=== PATIENT | male | born 1995 | race African-American/Black ===

== ENCOUNTER 2016-06-20 02:47 | Emergency (ER) | payer OTHER ==
[~2016-06-20] VITALS: Ht 181.6 cm; Wt 74.4 kg
[2016-06-20 03:02] VITALS: TEMP 36.9; Ht 181.6 cm; Wt 74.4 kg
--- NOTE | 2016-06-20 03:13 | EMERGENCY ROOM VISIT NOTE ---
History Report prepared by Nan: Mavis Santos Under the Supervision of: Dr. Irvin Colon M.D. First contact with patient: 03:07 Chief Complaint: HEAD INJURY (MINOR) Stated Complaint: BLEEDING HEAD History of Present Illness The patient is a 20 year old male who presents to the Emergency Room with complaints of a sudden head injury that occurred prior to arrival. He currently rates his discomfort as a 2/10 in severity. The patient notes that this evening he fell injuring his head on the cement. He denies any neck pain or extremity pain. The patient denies getting into a fight. He denies being on any daily medications. Source of History: patient Onset: prior to arrival Position: head Symptom Intensity: 2/10 Timing: other (sudden) Associated Symptoms: No neck pain Review of Systems See HPI for pertinent positives & negatives. A total of 10 systems reviewed and were otherwise negative. Past Medical & Surgical Medical Problems: (1) No pertinent past medical history Surgical Problems: (1) No pertinent past surgical history Family History No pertinent family history Social History Smoking Status: Never Smoker Smokeless Tobacco Use: No Alcohol Use: occasionally Marital Status: single Housing Status: lives with roommate Occupation Status: [employer] student Current/Historical Medications Scheduled Ascorbic Acid (Ascorbic Acid), 250 MG PO DAILY Multivitamin (Multivitamin), 1 TAB PO DAILY Allergies Coded Allergies: No Known Allergies (Unverified , 06/20/16) Physical Exam Vital Signs Date Time Temp Pulse Resp B/P Pulse Ox O2 Delivery O2 Flow Rate FiO2 06/20/16 05:10 66 16 117/74 98 Room Air 06/20/16 03:02 36.9 76 18 119/76 100 Room Air Physical Exam GENERAL: Patient is mildly intoxicated appearing and in no acute distress. HEENT: 4 cm gash/macerated laceration deep to bone on left forehead with moderate amount of missing tissue. Mild venous oozing. mucous membranes moist, no nasal congestion, no scleral icterus. NECK: No stridor, no adenopathy, no meningismus, trachea is midline. LUNGS: No dyspnea. Clear to auscultation and equal bilaterally. No wheeze, no rhonchi. HEART: Regular rate and rhythm. No murmurs, rubs, gallops appreciated. ABDOMEN: Soft, nontender, bowel sounds positive, no masses appreciated, no peritonitis. BACK: No midline tenderness, no CVA tenderness EXTREMITIES: Normal motion all extremities, no cyanosis, no edema. NEUROLOGIC: Alert and oriented, no acute motor or sensory deficits, no focal weakness, cranial nerves grossly intact. SKIN: No rash, no jaundice, no diaphoresis. Medical Decision & Procedures ER Provider Diagnostic Interpretation: X ray results and stated below per my interpretation and radiologist interpretation. Other radiology results and stated below per my review and radiologist interpretation: CT Head: Mild left frontal scalp soft tissue swelling. No ICH, mass effect or edema. No skull fracture. Radiologist Matty Duran MD Study ready at 0330 and initial results transmitted at 0412 Medications Administered Medications (Trade) Dose Ordered Sig/Aaron Route Start Time Stop Time Status Last Admin Dose Admin Tetracaine/ Epinephrine/ Lidocaine (L.e.t. Gel 4%/ 1:100/0.5%) 1 ea NOW STAT EXT 06/20/16 04:06 06/20/16 04:07 DC 06/20/16 04:06 1 EA ED Course 0310: The patient was evaluated in room A3. A complete history and physical exam was performed. 0315: Ordered Lidocaine/Epinephrine 20 ml INFIL. 0406: Ordered Let Gel 4%/ 1:100/0.5% 1 ea EXT. 0450: The laceration repair was performed by GAIL Gallego. See her note for further detail. 0502: I reevaluated the patient and he is doing well. I discussed the exam findings with him and I discussed the treatment plan. He verbalized complete understanding and agreement. He is ready to go home. Medical Decision Differential: Simple Laceration, Complex Laceration, Imbedded Foreign Body, Contamination/Infection Risk, Neurovascular Compromise, Tendon Injury, Compartment Syndrome, as well as Tetanus Status, amongst other pathologies entertained. 20 yr old male arrives with laceration to left forehead. Due to etoh on board felt that ct head reasonable which fortunately was negative. No neck pain nor neuro deficits. No other injuries. Sutured with excellent closure by GAIL Kimble. I discussed that this will likely scar given the macerated wound and surrounding abrasion and discussed ways to decrease scarring. Stable and in no distress at time of discharge. Impression Primary Impression: Laceration of face Additional Impressions: Fall Head injury, closed Scribe Attestation The scribe's documentation has been prepared under my direction and personally reviewed by me in its entirety. I confirm that the note above accurately reflects all work, treatment, procedures, and medical decision making performed by me. Departure Information Dispostion Home / Self-Care Referrals [facility] Forms HOME CARE DOCUMENTATION FORM, IMPORTANT VISIT INFORMATION Patient Instructions ED Laceration Facial Sutr Tape, My [facility] Additional Instructions Follow up with [facility], or Emergency Department, in 5-7 days for suture removal. Return if signs of infection develop. Problem Qualifiers Primary Impression: Laceration of face Encounter type: initial encounter Qualified Codes: S01.81XA - Laceration without foreign body of other part of head, initial encounter Additional Impressions: Fall Encounter type: initial encounter Qualified Codes: W19.XXXA - Unspecified fall, initial encounter Head injury, closed Encounter type: initial encounter Qualified Codes: S09.90XA - Unspecified injury of head, initial encounter
[2016-06-20] MEDS ORDERED: LIDOCAINE/EPINEPHRINE 1% 20 ML VIAL INFIL ONE (03:15)
[2016-06-20] MEDS ORDERED: MULT-506 PO (03:31)
[2016-06-20] MEDS ORDERED: ASCO250T5 PO (03:31)
[2016-06-20] MEDS ORDERED: LIDOCAINE/EPINEPH/TETRACAINE 1 EA SYR EXT STA (04:06)
--- NOTE | 2016-06-20 05:00 | EMERGENCY ROOM VISIT NOTE ---
ED Visit Note Location: forehead Total length: 2.6cm Complexity: simple Verbal consent was obtained after the risks and benefits were explained, including but not limited to bleeding, scarring, infection, pain, and bone/joint /nerve damage. At this time, the risks of the procedure are less than the risks of NOT performing the procedure. A time out was taken and the correct patient and site identified. The skin was prepped with betadine. The target area was anesthetized with LET. Copious irrigation was performed using NSS. The skin was re-prepped with betadine and a sterile field set. The wound was explored for foreign bodies and none found. Examination revealed no injury to deep structures such as tendons, bone, or significant blood vessels. Debridement was not performed. The wound edges were approximated using 8 6-0 simple interrupted nylon sutures. Hemostasis and excellent approximation was achieved. Antibacterial ointment and a sterile dressing applied. Detailed wound care instructions and signs and symptoms of infection reviewed with the pt. No complications and the patient tolerated the procedure well. Current/Historical Medications Scheduled Ascorbic Acid (Ascorbic Acid), 250 MG PO DAILY Multivitamin (Multivitamin), 1 TAB PO DAILY Allergies Coded Allergies: No Known Allergies (Unverified , 06/20/16) Vital Signs Date Time Temp Pulse Resp B/P Pulse Ox O2 Delivery O2 Flow Rate FiO2 06/20/16 03:02 36.9 76 18 119/76 100 Room Air Medications Administered Medications (Trade) Dose Ordered Sig/Aaron Route Start Time Stop Time Status Last Admin Dose Admin Tetracaine/ Epinephrine/ Lidocaine (L.e.t. Gel 4%/ 1:100/0.5%) 1 ea NOW STAT EXT 06/20/16 04:06 06/20/16 04:07 DC 06/20/16 04:06 1 EA Departure Information Referrals No Doctor, Assigned (PCP) Patient Instructions My [facility]
[2016-06-20 05:10] VITALS: BP 117/74; PULSE 66; O2SAT 98
--- NOTE | 2016-06-20 07:11 | DIAGNOSTIC IMAGING REPORT ---
HEAD CT NONCONTRAST CT DOSE: 537.48 mGy.cm HISTORY: Forehead injury TECHNIQUE: Multiaxial CT images of the head were performed without the use of intravenous contrast. Automated exposure control was utilized for this study. Comparison: None. Findings: The paranasal sinuses and mastoid air cells are clear. The calvarium and skull base are intact. The ventricles and sulci are within normal limits. There is no mass, hematoma, midline shift, or acute infarct. Mild left supraorbital soft tissue swelling. Impression: No acute intracranial abnormality. Left supraorbital soft tissue swelling Electronically signed by: Kirill Jalloh M.D. 06/20/2016 7:09 AM Dictated Date/Time: 06/20/2016 7:06 AM
== END 2016-06-20 05:10 | disposition home or self-care (01) ==
LOC: C.EDB 02:50 → EDBD 02:50 → C.EDA 05:10
DX: S01.81XA Laceration without foreign body of other part of head, initial encounter (principal); S09.90XA Unspecified injury of head, initial encounter; W19.XXXA Unspecified fall, initial encounter

== ENCOUNTER 2016-06-27 13:51 | Emergency (ER) | payer OTHER ==
[~2016-06-27] VITALS: Ht 182.9 cm; Wt 75.1 kg
[~2016-06-27 13:51] MED LIST: ASCO250T5 PO; MULT-506 PO
[2016-06-27 13:54] VITALS: BP 123/78; PULSE 54; TEMP 36.7; O2SAT 98; Ht 182.9 cm; Wt 75.1 kg
--- NOTE | 2016-06-27 14:13 | EMERGENCY ROOM VISIT NOTE ---
History First contact with patient: 13:56 Chief Complaint: SUTURE/STAPLE REMOVAL Stated Complaint: GETTING STITCHES OUT Nursing Triage Summary: triage note: pt presents for removal of sutures to left forehead. History of Present Illness The patient is a 20 year old male who presents to the Emergency Room for suture removal from a forehead laceration that was repaired in our facility 7 days ago. The patient denies any wound complications. Review of Systems Noncontributory Past Medical/Surgical History Medical Problems: (1) No pertinent past medical history Surgical Problems: (1) No pertinent past surgical history Family History No pertinent family history Social History Smoking Status: Never Smoker Alcohol Use: occasionally Marital Status: single Housing Status: lives with roommate Occupation Status: [employer] student Current/Historical Medications Scheduled Ascorbic Acid (Ascorbic Acid), 250 MG PO DAILY Multivitamin (Multivitamin), 1 TAB PO DAILY Allergies Coded Allergies: No Known Allergies (Unverified , 06/20/16) Physical Exam Vital Signs Date Time Temp Pulse Resp B/P Pulse Ox O2 Delivery O2 Flow Rate FiO2 06/27/16 13:54 36.7 54 18 123/78 98 Room Air Physical Exam HEENT: Examination of the left forehead shows a scabbed wound with the epithelialization of the surrounding tissue. No purulence, erythema or fluctuance noted. All sutures were meticulously located and removed without any further wound complications or diastases. Medical Decision & Procedures ED Course The patient was provided additional verbal wound care instructions, including use of vitamin E oil and a high SPF factor sunblock to minimize scar darkening. Follow-up with [facility] as needed for further wound management. Medical Decision Impression Primary Impression: Encounter for removal of sutures Additional Impression: Forehead laceration Departure Information Referrals No Doctor, Assigned (PCP) Patient Instructions [facility] Problem Qualifiers Additional Impression: Forehead laceration Encounter type: subsequent encounter Qualified Codes: S01.81XD - Laceration without foreign body of other part of head, subsequent encounter
== END 2016-06-27 14:11 | disposition home or self-care (01) ==
LOC: C.EDB 13:52 → C.EDD 14:11
DX: Z48.02 Encounter for removal of sutures (principal)

== ENCOUNTER → 2016-06-28 | Outpatient (CLI) | payer OTHER | END | disposition home or self-care (01) | LOC: C.LAB 03:14 | DX: Z02.83 Encounter for blood-alcohol and blood-drug test (principal) ==